=== PATIENT | female | born 1985 | race Caucasian/White ===

== ENCOUNTER 2018-03-03 05:03 | Emergency (ER) | payer OTHER ==
--- NOTE | 2018-03-03 06:21 | ED ---
General Adult HPI - General Chief complaint: Allergic Reaction Stated complaint: poss medication reaction, 37wks pgt Time Seen by Provider: 03/03/18 05:26 Source: patient Mode of arrival: ambulatory Limitations: no limitations - History of Present Illness -: days(s) Location: face Radiation: non-radiation Quality: aching Consistency: constant Improves with: none Worsens with: eating, other (Palpation) Associated Symptoms: denies other symptoms Treatments Prior to Arrival: none - Related Data Previous Rx's Medication Instructions Recorded Amoxicillin/Potassium Clav 1 tab PO Q12HR #20 tab 03/03/18 [Augmentin 875-125 Tablet] Clindamycin HCl 300 mg PO Q8H #30 cap 03/03/18 Allergies Allergy/AdvReac Type Severity Reaction Status Date / Time red dye Allergy Rash/Hives Verified 03/03/18 05:12 Review of Systems ROS Statement: Those systems with pertinent positive or pertinent negative responses have been documented in the HPI. ROS Other: All systems not noted in ROS Statement are negative. Constitutional: Denies: fever, chills Eyes: Denies: eye pain, vision change Respiratory: Denies: cough, dyspnea Cardiovascular: Denies: chest pain, palpitations Neurological: Denies: headache Hematological/Lymphatic: Denies: easy bleeding Past Medical History Additional Past Medical History / Comment(s): sinus infection History of Any Multi-Drug Resistant Organisms: MRSA Date of last positivie culture/infection: 2014 MDRO Source:: nasal Additional Past Surgical History / Comment(s): nasal; left wrist Past Psychological History: No Psychological Hx Reported Smoking Status: Former smoker Past Alcohol Use History: None Reported Past Drug Use History: None Reported General Exam Limitations: no limitations General appearance: alert, in no apparent distress, obese Head exam: Present: atraumatic, normocephalic Eye exam: Present: normal appearance, PERRL, EOMI. Absent: scleral icterus, conjunctival injection ENT exam: Present: normal oropharynx, mucous membranes moist, TM's normal bilaterally, normal external ear exam, other (Patient has alveolar abscess.) Neck exam: Present: normal inspection, full ROM. Absent: meningismus Respiratory exam: Present: normal lung sounds bilaterally. Absent: respiratory distress, wheezes, rales, rhonchi, stridor Cardiovascular Exam: Present: regular rate, normal rhythm, normal heart sounds. Absent: systolic murmur, diastolic murmur, rubs, gallop Skin exam: Present: warm, dry, intact, normal color. Absent: rash Course Vital Signs 03/03/18 03/03/18 05:08 06:57 Temperature 98.3 F 97.1 F L Pulse Rate 111 H 84 Respiratory 18 20 Rate Blood Pressure 116/81 124/69 O2 Sat by Pulse 97 98 Oximetry Medical Decision Making - Medical Decision Making Case discussed with Dr. Lawrence, treatment recommendations incorporated. Would change antibiotic, give first dose IV here, and will see patient in clinic for probable drainage . Disposition Clinical Impression: Abscess Disposition: HOME SELF-CARE Condition: Fair Instructions: Abscess (ED) Prescriptions: Amoxicillin/Potassium Clav [Augmentin 875-125 Tablet] 1 tab PO Q12HR #20 tab Clindamycin HCl 300 mg PO Q8H #30 cap Is patient prescribed a controlled substance at d/c from ED?: No Referrals: Edel Portillo MD [Primary Care Provider] - 1-2 days Alvarez Lawrence DDS [STAFF PHYSICIAN] - 1-2 days
[2018-03-03] MEDS ORDERED: AMPICILLIN-SULBACTAM 3 GM in SODIUM CHLORIDE 0.9% 100 ML IVPB STA (07:01)
[2018-03-03] MEDS ORDERED: CLINDAMYCIN 150 MG CAP PO STA (07:30)
[2018-03-03 08:01] VITALS: BP 116/61; PULSE 94; RESP 16; TEMP 98.1
== END 2018-03-03 08:01 | disposition home or self-care (01) ==
LOC: EC 05:03
DX: O99.613 Diseases of the digestive system complicating pregnancy, third trimester (principal); K04.7 Periapical abscess without sinus; Z87.09 Personal history of other diseases of the respiratory system; Z87.891 Personal history of nicotine dependence; Z86.14 Personal history of Methicillin resistant Staphylococcus aureus infection; Z91.048 Other nonmedicinal substance allergy status; Z3A.37 37 weeks gestation of pregnancy
CPT/HCPCS: 99283; 96365; J0295

== ENCOUNTER 2018-03-12 06:00 | Inpatient (IN) | payer OTHER ==
[2018-03-12] MEDS ORDERED: TERBUTALINE 1 MG/ML VIAL SQ PRN (06:33)
[2018-03-12] MEDS ORDERED: LIDOCAINE 0.5% (PF) 5 MG/ML (50 ML SDV) SQ PRN (06:33)
[2018-03-12] MEDS ORDERED: CARBOPROST TROMETHAMINE 250 MCG/ML 1 ML AMP IM PRN (06:33)
[2018-03-12] MEDS ORDERED: METHYLERGONOVINE 0.2 MG/ML 1 ML AMP IM PRN (06:33)
[2018-03-12] MEDS ORDERED: OXYTOCIN 10 UNIT/ML 1 ML VIAL IM PRN (06:33)
[2018-03-12 06:48] LABS: Basophils % (A) 0 %; Eosinophils # (A) 0.1 k/uL (0-0.7); Eosinophils % (A) 1 %; HCT 39.6 % (34.0-46.0); HGB 13.5 gm/dL (11.4-16.0); Lymphocytes # (A) 1.6 k/uL (1.0-4.8); Lymphocytes % (A) 23 %; MCH 28.7 pg (25.0-35.0); MCHC 34.2 g/dL (31.0-37.0); MCV 83.9 fL (80.0-100.0); Mean Platelet Volume 7.5; Monocytes # (A) 0.5 k/uL (0-1.0); Monocytes % (A) 7 %; Neutrophils # (A) 4.7 k/uL (1.3-7.7); Neutrophils % (A) 67 %; Platelet Count 231 k/uL (150-450); RBC 4.72 m/uL (3.80-5.40); RDW 14.2 % (11.5-15.5); WBC 7.1 k/uL (3.8-10.6)
[2018-03-12] MEDS: LACTATED RINGERS 1,000 ML IV SCH ×3 (07:17→17:11)
[2018-03-12] MEDS: OXYTOCIN 20 UNITS/1000 ML NS 1,000 ML IV SCH ×2 (07:17→23:31)
[2018-03-12] MEDS ORDERED: ROPIVACAINE 5MG/ML 20ML VIAL ONE (12:48)
[2018-03-12] MEDS ORDERED: fentaNYL (PF) 50 MCG/ML 5 ML AMP ONE (12:48)
[2018-03-12] MEDS ORDERED: SODIUM CHLORIDE 0.9% 100 ML BAG ONE (12:48)
[2018-03-12] MEDS ORDERED: HYDROCORTISONE 2.5% RECTAL CREAM 30 GM TUBE RECTAL PRN (20:36)
[2018-03-12] MEDS ORDERED: BENZOCAINE/MENTHOL SPRAY 1 GM/SPRAY AEROSOL TOPICAL PRN (20:36)
[2018-03-12] MEDS ORDERED: diphenhydrAMINE 50 MG CAP PO PRN (20:36)
[2018-03-12] MEDS ORDERED: diphenhydrAMINE 50 MG/ML 1 ML VIAL IVP PRN ×2 (20:36)
[2018-03-12] MEDS ORDERED: SIMETHICONE 80 MG CHEWABLE PO PRN (20:36)
[2018-03-12] MEDS ORDERED: ACETAMINOPHEN TAB 325 MG TAB PO PRN (20:36)
[2018-03-12] MEDS ORDERED: WITCH HAZEL 1 EACH MED..PAD TOPICAL PRN (20:36)
[2018-03-12] MEDS ORDERED: ZOLPIDEM 5 MG TAB PO PRN (20:36)
[2018-03-12] MEDS ORDERED: LANOLIN CREAM 5 GM TUBE TOPICAL PRN (20:36)
[2018-03-12] MEDS ORDERED: diphenhydrAMINE 25 MG CAP PO PRN (20:36)
--- NOTE | 2018-03-12 20:39 | P.HPOB ---
History of Present Illness H&P Date: 03/12/18 Chief Complaint: Intrauterine at 39 weeks induction of labor Debbie is a 32-year-old at 39 ryes for induction of labor. Her course was essentially unremarkable other than heartburn and some back pain earlier in the . She did well through the and at this time is dilated to send her 70% effaced -2 station. Artificial rupture membranes was performed and clear fluid is noted a category 1 tracing is noted. Pertinent labs include O+ blood type, Rh antibody was negative, rubella was immune, hepatitis B surface antigen as well as GBS were negative. Past Medical History Past Medical History: No Reported History Additional Past Medical History / Comment(s): sinus infection History of Any Multi-Drug Resistant Organisms: MRSA Date of last positivie culture/infection: 2014 MDRO Source:: nasal Additional Past Surgical History / Comment(s): nasal; left wrist Past Anesthesia/Blood Transfusion Reactions: No Reported Reaction Past Psychological History: No Psychological Hx Reported Smoking Status: Former smoker Past Alcohol Use History: None Reported Past Drug Use History: None Reported - Past Family History Mother Family Medical History: Thyroid Disorder Father Family Medical History: Myocardial Infarction (ID) Medications and Allergies Home Medications Medication Instructions Recorded Confirmed Type Amoxicillin/Potassium Clav 1 tab PO Q12HR #20 tab 03/03/18 03/12/18 Rx [Augmentin 875-125 Tablet] Clindamycin HCl 300 mg PO Q8H #30 cap 03/03/18 03/12/18 Rx Allergies Allergy/AdvReac Type Severity Reaction Status Date / Time ciprofloxacin [From Cipro] Allergy Intermediate Rash/Hives Verified 03/12/18 06: 30 red dye Allergy Rash/Hives Verified 03/03/18 05:12 Exam Osteopathic Statement: *. No significant issues noted on an osteopathic structural exam other than those noted in the History and Physical/Consult. Vital Signs Temp Pulse Resp BP Pulse Ox 03/12/18 06:36 96.7 F L 114 H 18 107/83 98 Intake and Output 03/12/18 03/12/18 03/12/18 06:59 14:59 22:59 Output Total 100 Balance -100 Output: Urine 100 Other: # Voids 1 Weight 112.491 kg - OBG Physical Exam Breast: both: normal (no masses) Abdomen: Obesity Abdomen: bowel sounds normal, no diffuse tenderness, no bruit present, no guarding noted, no hepatomegaly, no splenomegaly, no mass Vulva: both: normal Vagina: normal moisture, no discharge Cervix: no lesion, no discharge Uterus: normal size, normal contour Adnexa: both: normal Anus/Rectum: normal perianal skin, no rectal mass, no hemorrhoids, heme negative Results Result Diagrams: 03/12/18 06:32
--- NOTE | 2018-03-12 20:40 | P.PROBDLV ---
Vaginal Delivery Note - . Vaginal Delivery Note: Patient progressed complete and pushing with spontaneous vaginal delivery of a viable male over an intact perineum. Falling deliver the head a nuchal cord 1 was noted and easily reduced. Anterior shoulder was attempted to be delivered but was not clearing the pubic symphysis as easily as I would like therefore I did grasp in the posterior shoulders axilla and it was from left occiput anterior position rotated in counterclockwise motion both shoulders easily were delivered followed by the remainder the baby. Mouth nares were then bulb suctioned and baby was placed on mother's abdomen where the umbilical cord was allowed to pulsate for 30 seconds prior to clamping and cutting. Nursery personnel was present to assume care. Placenta was then delivered intact and Pitocin was added to the IV. scores 9 and 9 at one and 5 minutes respectively however the weight is pending. Both mother and baby are stable findings delivery.
--- NOTE | 2018-03-13 00:22 | P.PN ---
Progress Note - Text Progress Note Date: 03/13/18 hemorrhage Debbie is seen and evaluated, apparently since her delivery she's had continued moderate bleeding. I was first notified of this at 11:20 PM and initially ordered a dose of Methergine as the report was that her uterus was still boggy was not clamping down very well. Approximately 25 minutes later was called since bleeding was [place] a little bit slower but that she continued to have bleeding unclear total amount of blood loss since time of delivery but I did come evaluate the patient. Blood pressures are stable although on the low side comparatively last blood pressure is 112/68 she is basically asymptomatic from a hypovolemic standpoint however. We are ordering a stat CBC and ultrasound to assess products of conception potentially could be retained. Placental disc appeared intact following delivery, but that is certainly not a preclude her having some type of retained succenturiate lobe or other abnormality. Her uterus is firm but it is essentially at the umbilicus. Bleeding is still essentially moderate. We did discuss the possibility of needing to do a D&C if the bleeding continues and we're unable to get the bleeding slowed down of the uterus to clamp down any better. Will await ultrasound CBC findings before making any final decisions. Otherwise she is not having any difficulties or short with shortness of breath or breathing heart is regular and extremities are currently without pain.
[2018-03-13 00:33] LABS: Basophils % (A) 0 %; Eosinophils % (A) 0 %; HCT 36.6 % (34.0-46.0); HGB 12.6 gm/dL (11.4-16.0); Lymphocytes # (A) 0.9 k/uL (1.0-4.8); Lymphocytes % (A) 4 %; MCH 29.1 pg (25.0-35.0); MCHC 34.3 g/dL (31.0-37.0); MCV 84.9 fL (80.0-100.0); Mean Platelet Volume 8.2; Monocytes % (A) 5 %; Neutrophils # (A) 18.6 k/uL (1.3-7.7); Neutrophils % (A) 90 %; Platelet Count 193 k/uL (150-450); RBC 4.31 m/uL (3.80-5.40); RDW 14.5 % (11.5-15.5); WBC 20.7 k/uL (3.8-10.6)
--- NOTE | 2018-03-13 01:14 | US ---
EXAMINATION TYPE: US pelvic complete DATE OF EXAM: 03/13/2018 COMPARISON: NONE CLINICAL HISTORY: post hemorrhage. Vaginal delivery at approximately 202803/12/2018. TECHNIQUE: . Transabdominal sonographic images of the pelvis were acquired. Date of LMP: 9 months or > EXAM MEASUREMENTS: Uterus: 22.2 x 12.4 x 9.9 cm Endometrial Stripe: 5.5 cm Right Ovary: not seen Left Ovary: not seen 1. Uterus: enlarged as post ; Nabothian cyst seen in cervix = 1.4 x 0.9 x 0.7cm 2. Endometrium: complex, thickened appearance of endometrium, with contents also noted in BRII and an d cervix; color flow seen at periphery of endometrium/ myometrial border 3. Right Ovary: not seen 4. Left Ovary: not seen 5. Bilateral Adnexa: wnl 6. Posterior cul-de-sac: wnl IMPRESSION: There is mild thickening of the endometrium. No definite mass or fluid in the endometrium to suggest retained products. No free fluid in the pelvis.
[2018-03-13] MEDS: IBUPROFEN 600 MG TAB PO PRN ×3 (05:04→23:52)
[2018-03-13 07:41] LABS: Basophils % (A) 0 %; Eosinophils # (A) 0.1 k/uL (0-0.7); Eosinophils % (A) 1 %; HCT 33.9 % (34.0-46.0); HGB 11.3 gm/dL (11.4-16.0); Lymphocytes # (A) 1.6 k/uL (1.0-4.8); Lymphocytes % (A) 10 %; MCH 28.6 pg (25.0-35.0); MCHC 33.3 g/dL (31.0-37.0); Mean Platelet Volume 7.8; Monocytes # (A) 0.9 k/uL (0-1.0); Monocytes % (A) 6 %; Neutrophils # (A) 12.6 k/uL (1.3-7.7); Neutrophils % (A) 82 %; Platelet Count 218 k/uL (150-450); RBC 3.94 m/uL (3.80-5.40); RDW 14.3 % (11.5-15.5); WBC 15.4 k/uL (3.8-10.6)
--- NOTE | 2018-03-13 08:13 | P.PNOBGVD ---
Subjective - Subjective Principal diagnosis: day 1 Interval history: Selma is doing much better. She is involuting, voiding, and she is tolerating her diet. She voices no complaints. No signs or symptoms of hypovolemia. No dizziness with ambulating at this time. On exam her uterus feels much more firm and lower than it was last night. A CBC is pending. She relates bleeding has essentially stopped. All the questions are answered for this time. Plan continue current care for now. Likely discharged home tomorrow Patient reports: Reports appetite normal, Reports voiding normally, Reports pain well controlled, Reports ambulating normally : doing well Objective - Latest Vital Signs Latest vital signs: Vital Signs Temp Pulse Resp BP 03/13/18 04:00 98.2 F 72 18 117/70 03/13/18 01:08 75 18 135/76 03/12/18 23:30 98.5 F 94 18 128/81 03/12/18 22:37 96.5 F L 77 18 141/68 03/12/18 22:07 99.3 F 114 H 18 129/70 03/12/18 21:37 100.1 F H 117 H 18 147/83 03/12/18 21:22 115 H 18 113/70 03/12/18 21:07 100.6 F H 118 H 18 142/76 03/12/18 20:52 122 H 18 139/84 03/12/18 20:37 99.4 F 114 H 18 139/77 Intake and Output 03/12/18 03/13/18 03/13/18 22:59 06:59 14:59 Intake Total 839.75 960.417 Output Total 200 Balance 639.75 960.417 Intake: Intake, IV Titration 439.75 360.417 Amount Lactated Ringers 1,000 ml 400 @ 125 mls/hr IV .Q8H [facility] Rx#:[id number] Oxytocin 20 Units/1000 ml 39.75 360.417 Ns 1,000 ml @ 1 MILLIUNIT/MIN 3 mls/hr IV .Q24H LION[facility] Rx#:[id number] Oral 400 600 Output: Urine 200 Other: # Voids 1 4 - Exam Lungs: bilateral: normal Chest: Normal S1, Normal S2 Extremities: Present: normal Abdomen: Present: normal appearance, soft Uterus: Present: normal, firm - Labs Labs: Abnormal Lab Results - Last 24 Hours (Table) 03/13/18 03/13/18 Range/Units 00:20 07:17 WBC 20.7 H 15.4 H (3.8-10.6) k/uL Hgb 11.3 L (11.4-16.0) gm/dL Hct 33.9 L (34.0-46.0) % Neutrophils # 18.6 H 12.6 H (1.3-7.7) k/uL Lymphocytes # 0.9 L (1.0-4.8) k/uL
[2018-03-13] MEDS: PANTOPRAZOLE 40 MG TABLET PO SCH (08:39)
[2018-03-13 18:06] VITALS: RESP 15
[2018-03-13] MEDS: SENNOSIDES-DOCUSATE SODIUM 1 EACH TAB PO SCH (18:08)
[2018-03-14] MEDS: LACTATED RINGERS 1,000 ML IV SCH ×2 (00:30→00:31)
[2018-03-14] MEDS: SENNOSIDES-DOCUSATE SODIUM 1 EACH TAB PO SCH ×2 (00:31→18:26)
[2018-03-14] MEDS: PANTOPRAZOLE 40 MG TABLET PO SCH (07:50)
[2018-03-14 08:09] VITALS: BP 114/67; PULSE 70; TEMP 97.8
--- NOTE | 2018-03-14 10:34 | P.DS ---
Providers Date of admission: 03/12/18 06:20 Expected date of discharge: 03/14/18 Attending physician: Eric Driscoll Primary care physician: Edel Portillo [facility] Course: Debbie is doing very well day 2. She is involuting, voiding, tolerating her diet. She voices no complaints. Heart regular, lungs clear, extremities without pain. Abdomen is soft her uterus is now firm well below the umbilicus and her lochia is currently very light. A prescription for Motrin has been provided. All the questions are answered for this time. Discharge instructions were thoroughly reviewed and all questions are answered for her prior to her discharge. She is stable for discharge this time. Patient Condition at Discharge: Good Plan - Discharge Summary New Discharge Prescriptions: New Ibuprofen [Motrin] 600 mg PO Q6HR PRN #30 tab PRN Reason: Pain No Action Amoxicillin/Potassium Clav [Augmentin 875-125 Tablet] 1 tab PO Q12HR #20 tab Clindamycin HCl 300 mg PO Q8H #30 cap Discharge Medication List Amoxicillin/Potassium Clav [Augmentin 875-125 Tablet] 1 tab PO Q12HR #20 tab 08/16 [Rx] Clindamycin HCl 300 mg PO Q8H #30 cap 03/03/18 [Rx] Ibuprofen [Motrin] 600 mg PO Q6HR PRN #30 tab 03/14/18 [Rx] Follow up Appointment(s)/Referral(s): Eric Driscoll DO [Doctor of Osteopathic Medicine] - 6 Weeks Activity/Diet/Wound Care/Special Instructions: No heavy lifting, limit stairs and driving, and pelvic rest. If any high temperatures, heavy bleeding, or severe pain call my office Discharge Disposition: HOME SELF-CARE
[2018-03-14] MEDS: IBUPROFEN 600 MG TAB PO PRN (12:27)
== END 2018-03-14 13:00 | disposition home or self-care (01) | DRG 806 ==
LOC: 4FBP 06:20
PROVIDERS: ADMIT Obstetrics & Gynecology; ATTEND Obstetrics & Gynecology
PROC: 10E0XZZ Delivery of Products of Conception, External Approach (ICD-10-PCS; principal; 2018-03-12)
PROC: 00HU33Z Insertion of Infusion Device into Spinal Canal, Percutaneous Approach (ICD-10-PCS; 2018-03-12)
PROC: 3E0R3BZ Introduction of Anesthetic Agent into Spinal Canal, Percutaneous Approach (ICD-10-PCS; 2018-03-12)
DX: O69.81X0 Labor and delivery complicated by cord around neck, without compression, not applicable or unspecified (principal); O72.2 Delayed and secondary postpartum hemorrhage; Z37.0 Single live birth; O99.214 Obesity complicating childbirth; Z3A.39 39 weeks gestation of pregnancy; Z86.14 Personal history of Methicillin resistant Staphylococcus aureus infection; Z87.891 Personal history of nicotine dependence; Z82.49 Family history of ischemic heart disease and other diseases of the circulatory system; Z88.1 Allergy status to other antibiotic agents; Z91.02 Food additives allergy status
CPT/HCPCS: 76856; 85025; 86850; 86900; 86901

== ENCOUNTER 2018-04-03 20:20 | Emergency (ER) | payer OTHER ==
[2018-04-03] MEDS ORDERED: SODIUM CHLORIDE 0.9% 1,000 ML IV STA (20:49)
[2018-04-03] MEDS ORDERED: ONDANSETRON 4 MG/2 ML VIAL IVP STA (20:49)
[2018-04-03] MEDS ORDERED: MORPHINE SULFATE 4 MG/ML SYRINGE IV STA (20:49)
--- NOTE | 2018-04-03 20:54 | ED ---
Female Urogenital HPI - General Chief complaint: Vaginal Bleeding Stated complaint: Abd pain Time Seen by Provider: 04/03/18 20:28 Source: patient Mode of arrival: ambulatory Limitations: no limitations - History of Present Illness Initial comments: 32-year-old female patient presents to the emergency department today for evaluation of pelvic pain. Patient states she started having increased pain to her pelvic area approximately 2 days ago. Patient states that the pain worsened today and started radiating up into her upper abdomen. Sensation began to have low back pain today. Patient states that it feels like she has something "stuck" in her vagina. Patient is 3 weeks after vaginal delivery. Patient states that she has been having some vaginal bleeding that varies in color from dark brown to red. Patient states her bleeding is not heavy and she is not soaking through any pads. States that her discharge is odorous. Patient denies any use of tampons. Patient denies any nausea, vomiting, fever, chills, dizziness, or weakness. States she has been having some constipation but the last 2 days her bowel movements have been normal. She denies any hematochezia or melena. [employer] is Dr. Driscoll. Patient denies any recent rash, shortness breath, chest pain, numbness, tingling, dizziness, weakness, headache, visual changes, or any other complaints. - Related Data Previous Rx's Medication Instructions Recorded Amoxicillin/Potassium Clav 1 tab PO Q12HR #20 tab 03/03/18 [Augmentin 875-125 Tablet] Clindamycin HCl 300 mg PO Q8H #30 cap 03/03/18 Ibuprofen [Motrin] 600 mg PO Q6HR PRN #30 tab 03/14/18 Allergies Allergy/AdvReac Type Severity Reaction Status Date / Time ciprofloxacin [From Cipro] Allergy Intermediate Rash/Hives Verified 04/03/18 20: 26 red dye Allergy Rash/Hives Verified 04/03/18 20:26 Review of Systems ROS Statement: Those systems with pertinent positive or pertinent negative responses have been documented in the HPI. ROS Other: All systems not noted in ROS Statement are negative. Past Medical History Past Medical History: No Reported History Additional Past Medical History / Comment(s): sinus infection History of Any Multi-Drug Resistant Organisms: MRSA Date of last positivie culture/infection: 2014 MDRO Source:: nasal Additional Past Surgical History / Comment(s): nasal; left wrist Past Anesthesia/Blood Transfusion Reactions: No Reported Reaction Past Psychological History: No Psychological Hx Reported Smoking Status: Former smoker Past Alcohol Use History: None Reported Past Drug Use History: None Reported - Past Family History Mother Family Medical History: Thyroid Disorder Father Family Medical History: Myocardial Infarction (MT) General Exam Limitations: no limitations General appearance: alert, in no apparent distress, other (This is a well- developed, well-nourished adult female patient in no acute distress. Vital signs upon presentation are temperature 98.3F, pulse 82, respirations 18, blood pressure 122/80, pulse ox 99% on room air.) Eye exam: Present: normal appearance, PERRL, EOMI. Absent: scleral icterus, conjunctival injection, periorbital swelling ENT exam: Present: normal exam, normal oropharynx, mucous membranes moist Respiratory exam: Present: normal lung sounds bilaterally. Absent: respiratory distress, wheezes, rales, rhonchi, stridor Cardiovascular Exam: Present: regular rate, normal rhythm, normal heart sounds. Absent: systolic murmur, diastolic murmur, rubs, gallop, clicks GI/Abdominal exam: Present: soft, tenderness (Suprapubic tenderness), normal bowel sounds. Absent: distended, guarding, rebound, rigid External exam: Present: normal external exam Speculum exam: Present: normal speculum exam, vaginal bleeding (Small amount of dark red vaginal bleeding, coming from an open cervical os. ), other (No foreign body or tissue.) By manual exam: Present: normal by manual exam Back exam: Present: normal inspection. Absent: CVA tenderness (R), CVA tenderness (L) Neurological exam: Present: alert, oriented X3, CN II-XII intact Psychiatric exam: Present: normal affect, normal mood Skin exam: Present: warm, dry, intact, normal color. Absent: rash Course Vital Signs 04/03/18 04/03/18 20:23 23:10 Temperature 98.3 F 98.7 F Pulse Rate 82 73 Respiratory 18 16 Rate Blood Pressure 122/80 133/80 O2 Sat by Pulse 99 99 Oximetry Medical Decision Making - Medical Decision Making 32-year-old female patient presents to the emergency department today for evaluation of increased pelvic pain. Patient is 3 weeks after vaginal delivery. Physical examination did reveal some suprapubic abdominal tenderness. Labs reviewed and are relatively unremarkable. White blood cell count was within normal range. Ultrasound was obtained and did show heterogenous echotexture in the myometrium which could indicate inflammation or infection. Given patient's normal vital signs, lack of temperature, normal white blood cell count is low suspicion for infection, especially since changes are consistent with ultrasound obtained just after delivery. My attending Dr. Eaton did speak to the [employer] pipe fitter ammonia Dr. Solomon who was instructions are to have patient follow-up in the office this week. I did discuss findings, results , and plan with the patient. She is instructed to call for an appointment Thursday morning. Return parameters were discussed in detail. She verbalizes understanding and agrees with this plan. - Lab Data Result diagrams: 04/03/18 20:53 04/03/18 20:53 Lab Results 04/03/18 04/03/18 04/03/18 Range/Units 20:53 20:53 21:30 WBC 9.7 (3.8-10.6) k/uL RBC 4.38 (3.80-5.40) m/uL Hgb 12.5 (11.4-16.0) gm/dL Hct 38.1 (34.0-46.0) % MCV 87.0 (80.0-100.0) fL MCH 28.6 (25.0-35.0) pg MCHC 32.9 (31.0-37.0) g/dL RDW 13.3 (11.5-15.5) % Plt Count 245 (150-450) k/uL Neutrophils % 69 % Lymphocytes % 20 % Monocytes % 6 % Eosinophils % 2 % Basophils % 0 % Neutrophils # 6.8 (1.3-7.7) k/uL Lymphocytes # 2.0 (1.0-4.8) k/uL Monocytes # 0.6 (0-1.0) k/uL Eosinophils # 0.2 (0-0.7) k/uL Basophils # 0.0 (0-0.2) k/uL Sodium 139 (137-145) mmol/L Potassium 4.2 (3.5-5.1) mmol/L Chloride 106 (98-107) mmol/L Carbon Dioxide 25 (22-30) mmol/L Anion Gap 8 mmol/L BUN 16 (7-17) mg/dL Creatinine 1.01 (0.52-1.04) mg/dL Est GFR (CKD-EPI)AfAm 86 (>60 ml/min/1.73 sqM) Est GFR (CKD-EPI)NonAf 75 (>60 ml/min/1.73 sqM) Glucose 90 (74-99) mg/dL Calcium 9.4 (8.4-10.2) mg/dL Total Bilirubin 0.3 (0.2-1.3) mg/dL AST 26 (14-36) U/L ALT 35 (9-52) U/L Alkaline Phosphatase 105 (38-126) U/L Total Protein 6.6 (6.3-8.2) g/dL Albumin 3.7 (3.5-5.0) g/dL Amylase 33 (30-110) U/L Lipase 45 (23-300) U/L Urine Color Yellow Urine Appearance Clear (Clear) Urine pH 6.0 (5.0-8.0) Ur Specific [place] 1.027 (1.001-1.035) Urine Protein Trace H (Negative) Urine Glucose (UA) Negative (Negative) Urine Ketones Negative (Negative) Urine Blood Negative (Negative) Urine Nitrite Negative (Negative) Urine Bilirubin Negative (Negative) Urine Urobilinogen <2.0 (<2.0) mg/dL Ur Leukocyte Esterase Trace H (Negative) Urine RBC 3 (0-5) /hpf Urine WBC 16 H (0-5) /hpf Ur Squamous Epith Cells 2 (0-4) /hpf Amorphous Sediment Occasional H (None) /hpf Urine Mucus Moderate H (None) /hpf - Radiology Data Radiology results: report reviewed Transabdominal ultrasound of the pelvis was obtained. Report was reviewed in its entirety. Impression by Dr. Mukherjee shows uterus has decreased in size compared to prior exam. Myometrial echotexture is heterogenous as on prior, consider inflammatory change, correlate to exclude infection. Disposition Clinical Impression: Pelvic pain Disposition: HOME SELF-CARE Condition: Good Instructions: Pelvic Pain in Women (ED) Additional Instructions: Increase fluids. Take Tylenol Motrin for pain control. Follow-up with your OB/ [employer] for recheck this week. Call Thursday for an appointment. Return immediately for any new, worsening, or concerning symptoms. Is patient prescribed a controlled substance at d/c from ED?: No Referrals: Edel Portillo MD [Primary Care Provider] - 1-2 days Eric Driscoll DO [Doctor of Osteopathic Medicine] - 1-2 days Time of Disposition: 23:03
[2018-04-03 21:23] LABS: Basophils % (A) 0 %; Eosinophils # (A) 0.2 k/uL (0-0.7); Eosinophils % (A) 2 %; HCT 38.1 % (34.0-46.0); HGB 12.5 gm/dL (11.4-16.0); Lymphocytes % (A) 20 %; MCH 28.6 pg (25.0-35.0); MCHC 32.9 g/dL (31.0-37.0); Mean Platelet Volume 7.4; Monocytes # (A) 0.6 k/uL (0-1.0); Monocytes % (A) 6 %; Neutrophils # (A) 6.8 k/uL (1.3-7.7); Neutrophils % (A) 69 %; Platelet Count 245 k/uL (150-450); RBC 4.38 m/uL (3.80-5.40); RDW 13.3 % (11.5-15.5); WBC 9.7 k/uL (3.8-10.6)
[2018-04-03 21:32] LABS: Albumin 3.7 g/dL (3.5-5.0); Calcium 9.4 mg/dL (8.4-10.2); Potassium 4.2 mmol/L (3.5-5.1); Total Bilirubin 0.3 mg/dL (0.2-1.3); Total Protein 6.6 g/dL (6.3-8.2)
--- NOTE | 2018-04-03 21:50 | US ---
EXAMINATION TYPE: US pelvic complete DATE OF EXAM: 04/03/2018 COMPARISON: US 03/13/2018 CLINICAL HISTORY: Pain. Patient is post 3 weeks, having off and on bleeding and pelvic pain. TECHNIQUE: Transabdominal (TA). Date of LMP: not since before . EXAM MEASUREMENTS: Uterus: 9.5 x 5.3 x 8.6 cm Endometrial Stripe: 1.1 cm Right Ovary: 2.7 x 1.8 x 1.9 cm Left Ovary: 2.3 x 1.8 x 2.9 cm 1. Uterus: Anteverted heterogeneous echotexture 2. Endometrium: measures 1.1 cm 3. Right Ovary: wnl 4. Left Ovary: wnl Spectral, color and waveform doppler imaging shows good arterial and venous flow within the ovaries ; there is no evidence for ovarian torsion. 5. Bilateral Adnexa: wnl 6. Posterior cul-de-sac: no free fluid No ultrasound evidence for retained products. IMPRESSION: The uterus has decreased in size compared to prior exam. Myometrial echotexture is hetero geneous as on prior, consider inflammatory change, correlate to exclude infection.
[2018-04-03 22:11] LABS: Amorphous Sediment,Urine Occasional /hpf; Appearance,Urine Clear (Clear); Bilirubin,Urine Negative (Negative); Blood,Urine Negative (Negative); Color,Urine Yellow; Glucose,Urine (UA) Negative (Negative); Ketones,Urine Negative (Negative); Leukocyte Esterase,Urine Trace (Negative); Mucus,Urine Moderate /hpf; Nitrite,Urine Negative (Negative); Protein,Urine Trace (Negative); RBC,Urine 3 /hpf (0-5); Specific Gravity,Urine 1.027 (1.001-1.035); Squamous Epithelial Cell,Urine 2 /hpf (0-4); Urobilinogen,Urine <2.0 mg/dL (<2.0); WBC,Urine 16 /hpf (0-5)
[2018-04-03 23:10] VITALS: BP 133/80; PULSE 73; RESP 16; TEMP 98.7
== END 2018-04-03 23:10 | disposition home or self-care (01) ==
LOC: EC 20:20
DX: R10.2 Pelvic and perineal pain (principal); M54.5 Low back pain; Z88.1 Allergy status to other antibiotic agents; Z91.018 Allergy to other foods; Z87.891 Personal history of nicotine dependence
CPT/HCPCS: 36415; 80053; 82150; 83690; 85025; 81001; 87070; 87205; 93975; 76856; 99284; 96374; 96375; 96361; J2270; J2405

== ENCOUNTER 2018-08-30 23:55 | Emergency (ER) | payer OTHER ==
[2018-08-31 01:01] LABS: Basophils % (A) 0 %; Eosinophils # (A) 0.1 k/uL (0-0.7); Eosinophils % (A) 1 %; HCT 37.8 % (34.0-46.0); HGB 12.3 gm/dL (11.4-16.0); Lymphocytes # (A) 2.1 k/uL (1.0-4.8); Lymphocytes % (A) 18 %; MCH 27.2 pg (25.0-35.0); MCHC 32.6 g/dL (31.0-37.0); MCV 83.4 fL (80.0-100.0); Mean Platelet Volume 7.6; Monocytes # (A) 0.6 k/uL (0-1.0); Monocytes % (A) 6 %; Neutrophils # (A) 8.4 k/uL (1.3-7.7); Neutrophils % (A) 74 %; Platelet Count 284 k/uL (150-450); RBC 4.54 m/uL (3.80-5.40); RDW 14.1 % (11.5-15.5); WBC 11.4 k/uL (3.8-10.6)
[2018-08-31 01:05] LABS: Appearance,Urine Clear (Clear); Bilirubin,Urine Negative (Negative); Blood,Urine Moderate (Negative); Color,Urine Yellow; Glucose,Urine (UA) Negative (Negative); Ketones,Urine Trace (Negative); Leukocyte Esterase,Urine Trace (Negative); Mucus,Urine Occasional /hpf; Nitrite,Urine Negative (Negative); PH, Urine 5.5 (5.0-8.0); Protein,Urine Trace (Negative); RBC,Urine >182 /hpf (0-5); Specific Gravity,Urine 1.032 (1.001-1.035); Squamous Epithelial Cell,Urine 1 /hpf (0-4)
[2018-08-31 01:10] LABS: Anion Gap 5 mmol/L; Blood Urea Nitrogen 16 mg/dL (7-17); Calcium 9.4 mg/dL (8.4-10.2); Carbon Dioxide 28 mmol/L (22-30); Chloride 107 mmol/L (98-107); Glucose 86 mg/dL (74-99); Potassium 4.2 mmol/L (3.5-5.1); Sodium 140 mmol/L (137-145)
--- NOTE | 2018-08-31 01:47 | ED ---
General Adult HPI - General Chief complaint: Abdominal Pain Stated complaint: Vaginal Bleeding Time Seen by Provider: 08/31/18 00:13 Source: patient Mode of arrival: ambulatory Limitations: no limitations - History of Present Illness Initial comments: This patient is a 33-year-old woman who presents to be evaluated for passing larger blood clots and having more pelvic cramping than is usual for her periods. Patient states that she had been in her usual state of health until about 8 PM tonight when she had an increase in cramping and passed golf ball sized clot. She states that the bleeding has slowed little bit. She denies signs symptoms of anemia. Patient states she is not having any other symptoms consistent with . -: hour(s) Location: abdomen Radiation: non-radiation Quality: other (Abdomen) Consistency: constant Improves with: none Worsens with: none Associated Symptoms: other (Vaginal bleeding) Treatments Prior to Arrival: none - Related Data Previous Rx's Medication Instructions Recorded Amoxicillin/Potassium Clav 1 tab PO Q12HR #20 tab 03/03/18 [Augmentin 875-125 Tablet] Clindamycin HCl 300 mg PO Q8H #30 cap 03/03/18 Ibuprofen [Motrin] 600 mg PO Q6HR PRN #30 tab 03/14/18 Allergies Allergy/AdvReac Type Severity Reaction Status Date / Time ciprofloxacin [From Cipro] Allergy Intermediate Rash/Hives Verified 08/31/18 00:04 red dye Allergy Rash/Hives Verified 08/31/18 00:04 Review of Systems ROS Statement: Those systems with pertinent positive or pertinent negative responses have been documented in the HPI. ROS Other: All systems not noted in ROS Statement are negative. Constitutional: Denies: fever, chills, weakness Respiratory: Denies: cough, dyspnea Cardiovascular: Denies: chest pain, palpitations, syncope Gastrointestinal: Reports: abdominal pain. Denies: nausea, vomiting, diarrhea, constipation Genitourinary: Reports: abnormal menses. Denies: dysuria, frequency, hematuria, discharge Musculoskeletal: Denies: back pain Skin: Denies: rash Neurological: Denies: headache, weakness, numbness Hematological/Lymphatic: Denies: easy bleeding Past Medical History Past Medical History: No Reported History Additional Past Medical History / Comment(s): sinus infection History of Any Multi-Drug Resistant Organisms: MRSA Date of last positivie culture/infection: 2015 MDRO Source:: nasal Additional Past Surgical History / Comment(s): nasal; left wrist, Past Anesthesia/Blood Transfusion Reactions: No Reported Reaction Past Psychological History: No Psychological Hx Reported Smoking Status: Former smoker Past Alcohol Use History: Rare Past Drug Use History: None Reported - Past Family History Mother Family Medical History: Thyroid Disorder Father Family Medical History: Myocardial Infarction ([place]) General Exam Limitations: no limitations General appearance: alert, in no apparent distress Head exam: Present: atraumatic, normocephalic Eye exam: Present: normal appearance. Absent: scleral icterus, conjunctival injection ENT exam: Present: normal oropharynx Neck exam: Present: normal inspection Respiratory exam: Present: normal lung sounds bilaterally. Absent: respiratory distress, wheezes, rales, rhonchi, stridor Cardiovascular Exam: Present: regular rate, normal rhythm, normal heart sounds. Absent: systolic murmur, diastolic murmur, rubs, gallop GI/Abdominal exam: Present: soft. Absent: distended, tenderness, guarding, rebound, rigid, mass By manual exam: Present: other (Patient declined exam) Extremities exam: Present: normal inspection, normal capillary refill Back exam: Present: normal inspection. Absent: CVA tenderness (R), CVA tenderness (L) Neurological exam: Present: alert Skin exam: Present: warm, dry, intact, normal color. Absent: rash, petechiae, pallor Course Vital Signs 08/31/18 08/31/18 00:00 02:20 Temperature 98.2 F 97.7 F Pulse Rate 82 97 Respiratory 17 18 Rate Blood Pressure 119/85 134/78 O2 Sat by Pulse 99 98 Oximetry Medical Decision Making - Lab Data Result diagrams: 08/31/18 00:16 08/31/18 00:16 Lab Results 08/31/18 08/31/18 08/31/18 Range/Units 00:16 00:16 00:16 WBC 11.4 H (3.8-10.6) k/uL RBC 4.54 (3.80-5.40) m/uL Hgb 12.3 (11.4-16.0) gm/dL Hct 37.8 (34.0-46.0) % MCV 83.4 (80.0-100.0) fL MCH 27.2 (25.0-35.0) pg MCHC 32.6 (31.0-37.0) g/dL RDW 14.1 (11.5-15.5) % Plt Count 284 (150-450) k/uL Neutrophils % 74 % Lymphocytes % 18 % Monocytes % 6 % Eosinophils % 1 % Basophils % 0 % Neutrophils # 8.4 H (1.3-7.7) k/uL Lymphocytes # 2.1 (1.0-4.8) k/uL Monocytes # 0.6 (0-1.0) k/uL Eosinophils # 0.1 (0-0.7) k/uL Basophils # 0.0 (0-0.2) k/uL Sodium 140 (137-145) mmol/L Potassium 4.2 (3.5-5.1) mmol/L Chloride 107 (98-107) mmol/L Carbon Dioxide 28 (22-30) mmol/L Anion Gap 5 mmol/L BUN 16 (7-17) mg/dL Creatinine 0.88 (0.52-1.04) mg/dL Est GFR (CKD-EPI)AfAm >90 (>60 ml/min/1.73 sqM) Est GFR (CKD-EPI)NonAf 88 (>60 ml/min/1.73 sqM) Glucose 86 (74-99) mg/dL Calcium 9.4 (8.4-10.2) mg/dL Urine Color Urine Appearance (Clear) Urine pH (5.0-8.0) Ur Specific [place] (1.001-1.035) Urine Protein (Negative) Urine Glucose (UA) (Negative) Urine Ketones (Negative) Urine Blood (Negative) Urine Nitrite (Negative) Urine Bilirubin (Negative) Urine Urobilinogen (<2.0) mg/dL Ur Leukocyte Esterase (Negative) Urine RBC (0-5) /hpf Ur Squamous Epith Cells (0-4) /hpf Urine Mucus (None) /hpf Urine HCG, Qual Not Detected (Not Detectd) 08/31/18 Range/Units 00:16 WBC (3.8-10.6) k/uL RBC (3.80-5.40) m/uL Hgb (11.4-16.0) gm/dL Hct (34.0-46.0) % MCV (80.0-100.0) fL MCH (25.0-35.0) pg MCHC (31.0-37.0) g/dL RDW (11.5-15.5) % Plt Count (150-450) k/uL Neutrophils % % Lymphocytes % % Monocytes % % Eosinophils % % Basophils % % Neutrophils # (1.3-7.7) k/uL Lymphocytes # (1.0-4.8) k/uL Monocytes # (0-1.0) k/uL Eosinophils # (0-0.7) k/uL Basophils # (0-0.2) k/uL Sodium (137-145) mmol/L Potassium (3.5-5.1) mmol/L Chloride (98-107) mmol/L Carbon Dioxide (22-30) mmol/L Anion Gap mmol/L BUN (7-17) mg/dL Creatinine (0.52-1.04) mg/dL Est GFR (CKD-EPI)AfAm (>60 ml/min/1.73 sqM) Est GFR (CKD-EPI)NonAf (>60 ml/min/1.73 sqM) Glucose (74-99) mg/dL Calcium (8.4-10.2) mg/dL Urine Color Yellow Urine Appearance Clear (Clear) Urine pH 5.5 (5.0-8.0) Ur Specific [place] 1.032 (1.001-1.035) Urine Protein Trace H (Negative) Urine Glucose (UA) Negative (Negative) Urine Ketones Trace H (Negative) Urine Blood Moderate H (Negative) Urine Nitrite Negative (Negative) Urine Bilirubin Negative (Negative) Urine Urobilinogen 2.0 (<2.0) mg/dL Ur Leukocyte Esterase Trace H (Negative) Urine RBC >182 H (0-5) /hpf Ur Squamous Epith Cells 1 (0-4) /hpf Urine Mucus Occasional H (None) /hpf Urine HCG, Qual (Not Detectd) Disposition Clinical Impression: Dysfunctional uterine bleeding Disposition: HOME SELF-CARE Condition: Good Instructions (If sedation given, give patient instructions): Menorrhagia (ED) Is patient prescribed a controlled substance at d/c from ED?: No Referrals: Edel Portillo MD [Primary Care Provider] - 1-2 days
[2018-08-31 02:21] VITALS: BP 134/78; PULSE 97; RESP 18; TEMP 97.7
== END 2018-08-31 02:20 | disposition home or self-care (01) ==
LOC: EC 23:55
DX: N93.8 Other specified abnormal uterine and vaginal bleeding (principal); Z88.1 Allergy status to other antibiotic agents; Z91.02 Food additives allergy status; Z87.891 Personal history of nicotine dependence
CPT/HCPCS: 36415; 80048; 81001; 81025; 85025; 99284